=== PATIENT | male | born 1985 | race Caucasian/White ===

== ENCOUNTER 2016-09-21 00:36 | Emergency (ER) | payer SELFPAY ==
--- NOTE | 2016-09-21 00:39 | EDPRACDOC ---
<Comfort Harper - Last Filed: 09/21/16 01:43> - History of Present Illness Onset: SALES CLERK FOOD HPI: PT FOUND IN HIS ROOM UNRESPONSIVE, EMS CALLED, PT RECEIVED NARCAN 2 MG IN AND 1 MG IV WITH GOOD RESULTS, PT DENIES COMPLAINTS NOW EXCEPT "FEEL CONGESTED IN MY CHEST", STATES CHEST "FEELS FUNNY". PT STATES WAS INJECTING HEROIN TONIGHT, DENIES OTHER DRUG USE. Reason for Seeking Treatment: 911 Call Presents With: Reports: None Expresses: Reports: None Suicidal Plan: Reports: None Relevant History: Reports: None Medication Compliance: N/A Able to Care for Self: Yes Able to Control Self: Yes Associated Signs and Symptoms: Reports: Other <Benito Jackson - Last Filed: 09/21/16 02:35> - General Information Chief Complaint: Overdose Stated Complaint: OD Time Seen by Provider: 09/21/16 00:36 - Treatment Prior to ED Arrival Reported Medications/Treatment SALES CLERK FOOD Medications SALES CLERK FOOD (Medication/ NARCAN 3MG Dose/Time) EMS Treatment BLS IV Yes <Comfort Harper - Last Filed: 09/21/16 01:43> ED Past Medical History - History Reviewed Yes Nurses notes reviewed and agree except as marked No Past Medical History: Yes Patient has no past medical history - Social Medical History Smoking Status: Heavy tobacco smoker (5 or more cigarettes/day or daily pipe/ cigar) ETOH: None Substance Abuse: Illicit Drugs (HEROIN) <Benito Jackson - Last Filed: 09/21/16 02:35> EDM Review of Systems - Review of Systems Constitutional: negative: Chills, Fever Eyes: negative: Blurred Vision, Double Vision Ears: negative: Drainage Throat: negative: Pain Nose: Congestion. negative: Discharge Respiratory: Cough. negative: Shortness of Breath, Wheezing Cardiovascular: negative: Chest Pain, Palpitations Gastrointestinal: negative: Diarrhea, Nausea, Pain, Vomiting Genitourinary: negative: Dysuria, Frequency Neurological: negative: Dizziness, Headache, Numbness, Weakness Musculoskeletal: No Symptoms Reported Integumentary: No Symptoms Reported <Benito Jackson - Last Filed: 09/21/16 02:35> - Physical Exam Last recorded Vital Signs: Last Vital Signs Temp 97.8 F 09/21/16 00:49 Pulse 95 09/21/16 01:11 Resp 22 09/21/16 01:11 BP 154/86 09/21/16 01:11 Pulse Ox 95 09/21/16 01:21 Oxygen Pulse Oxygen Saturation 95 O2 Device Nasal Cannula Oxygen Flow Rate 2 Fraction of Inspired Oxygen ( FIO2) <Comfort Harper - Last Filed: 09/21/16 01:43> - Physical Exam Constitutional: Alert (Awake), No apparent distress Oriented to: Time, Person, Place Last recorded Vital Signs: Oxygen Pulse Oxygen Saturation O2 Device Oxygen Flow Rate Fraction of Inspired Oxygen ( FIO2) - HEENT Head: Normal ( normocephalic) Eye Exam: Normal (PERRL, EOMI, Sclera white) Oropharynx: Normal (Pharynx:Moist without exudate,Gums-no swelling) Tympanic Membrane: Normal ENT EAC: Normal TMJ: Normal Nose: No Symptoms Reported (septum midline) Neck: Normal (FROM, trachea at midline) - Respiratory/Cardiovascular Respiratory: Normal - CTA (BBS clear to auscultation without adventitious sounds ) Cardiovascular: Normal (RRR without murmur, gallop or rub) - GI Auscultation: Normal (NABS) Palpation: Normal (Soft,No rebound or guarding, non distended) Tenderness: Non tender Reyna's Sign: Negative - Musculoskeletal Back: Normal (Non-Tender) Extremities: Normal (Normal tone, Pulses 2+ No cyanosis or edema, FROM) - Integumentary Skin: Normal, Warm, Dry Lymphatics: Normal (no adenopathy) - Neurologic Memory Impaired: Normal Motor Function: Normal (Normal tone, Pulses 2+ No cyanosis or edema, FROM) Cranial Nerve: Normal (CN II-X11 intact sensation, strength 5/5) Cerebellar: Normal Mood Description: Normal Perception: Normal <Benito Jackson - Last Filed: 09/21/16 02:35> - Results 09/21/16 00:50 09/21/16 00:50 WBC 13.9 xk/uL (3.8-10.8) H 09/21/16 00:50 RBC 4.50 xM/uL (4.70-6.10) L 09/21/16 00:50 Hgb 13.5 g/dL (14.0-18.0) L 09/21/16 00:50 Hct 39.9 % (42-52) L 09/21/16 00:50 MCV 89 fL (80-94) 09/21/16 00:50 MCH 30.0 pg (27-32) 09/21/16 00:50 MCHC 33.8 g/dl (33-36) 09/21/16 00:50 RDW 13.2 % (11.5-14.5) 09/21/16 00:50 Plt Count 239 xk/uL (130-400) 09/21/16 00:50 MPV 8.1 fL (7.4-10.4) 09/21/16 00:50 Neut % (Auto) 73.7 % (45-76) 09/21/16 00:50 Lymph % (Auto) 20.4 % (17-44) 09/21/16 00:50 [place] % (Auto) 4.2 % (3-10) 09/21/16 00:50 Eos % (Auto) 1.0 % (0-5) 09/21/16 00:50 Baso % (Auto) 0.7 % (0-2) 09/21/16 00:50 Absolute Neuts (auto) 10.15 xk/uL (1.7-8.2) H 09/21/16 00:50 Absolute Lymphs (auto) 2.78 xk/uL (0.65-4.75) 09/21/16 00:50 PT 11.4 SEC (9.2-11.2) H 09/21/16 00:50 INR 1.1 09/21/16 00:50 APTT 22.4 SEC (22-35) 09/21/16 00:50 Puncture Site Right radial 09/21/16 01:09 pH 7.370 pH UNITS (7.35-7.45) 09/21/16 01:09 pCO2 46.0 mmHg (35-45) H 09/21/16 01:09 pO2 57.0 mmHg (80-100) L 09/21/16 01:09 HCO3 26.6 MMOL/L (22-26) H 09/21/16 01:09 Total CO2 28.0 MMOL/L (23-27) H 09/21/16 01:09 Base Excess 0.8 (+/- 2) 09/21/16 01:09 FiO2 % 21 09/21/16 01:09 Specimen Drawn By Rakma 09/21/16 01:09 Sodium 140 mEq/L (137-146) 09/21/16 00:50 Potassium 3.9 mEq/L (3.5-5.1) 09/21/16 00:50 Chloride 102 mEq/L (98-107) 09/21/16 00:50 Carbon Dioxide 30 mMOL/L (22-33) 09/21/16 00:50 Anion Gap 12 mEq/L (8-16) 09/21/16 00:50 BUN 14 MG/DL (9-20) 09/21/16 00:50 Creatinine 0.90 MG/DL (0.66-1.25) 09/21/16 00:50 Estimated GFR (MDRD) > 60 mL/min (>=60) 09/21/16 00:50 Glucose 177 MG/DL (70-99) H 09/21/16 00:50 Calculated Osmolality 274 MOs/Kg (270-290) 09/21/16 00:50 Calcium 8.3 MG/DL (8.4-10.2) L 09/21/16 00:50 Corrected Calcium 8.5 MG/DL (8.4-10.2) 09/21/16 00:50 Total Bilirubin 1.0 MG/DL (0.2-1.3) 09/21/16 00:50 AST 38 IU/L (17-59) 09/21/16 00:50 ALT 37 IU/L (21-72) 09/21/16 00:50 Alkaline Phosphatase 42 IU/L (38-126) 09/21/16 00:50 Troponin I < 0.01 ng/mL (<.04) 09/21/16 00:50 Total Protein 6.6 G/DL (6.3-8.2) 09/21/16 00:50 Albumin 3.8 G/DL (3.5-5.0) 09/21/16 00:50 Lab Results 09/21/16 09/21/16 09/21/16 01:09 00:50 00:50 WBC 13.9 H RBC 4.50 L Hgb 13.5 L Hct 39.9 L MCV 89 MCH 30.0 MCHC 33.8 RDW 13.2 Plt Count 239 MPV 8.1 Neut % (Auto) 73.7 Lymph % (Auto) 20.4 [place] % (Auto) 4.2 Eos % (Auto) 1.0 Baso % (Auto) 0.7 Absolute Neuts (auto) 10.15 H Absolute Lymphs (auto) 2.78 PT 11.4 H INR 1.1 APTT 22.4 Puncture Site Right radial pH 7.370 pCO2 46.0 H pO2 57.0 L HCO3 26.6 H Total CO2 28.0 H Base Excess 0.8 FiO2 % 21 Specimen Drawn By Rakma Sodium Potassium Chloride Carbon Dioxide Anion Gap BUN Creatinine Estimated GFR (MDRD) Glucose Calculated Osmolality Calcium Corrected Calcium Total Bilirubin AST ALT Alkaline Phosphatase Troponin I Total Protein Albumin 09/21/16 00:50 WBC RBC Hgb Hct MCV MCH MCHC RDW Plt Count MPV Neut % (Auto) Lymph % (Auto) [place] % (Auto) Eos % (Auto) Baso % (Auto) Absolute Neuts (auto) Absolute Lymphs (auto) PT INR APTT Puncture Site pH pCO2 pO2 HCO3 Total CO2 Base Excess FiO2 % Specimen Drawn By Sodium 140 Potassium 3.9 Chloride 102 Carbon Dioxide 30 Anion Gap 12 BUN 14 Creatinine 0.90 Estimated GFR (MDRD) > 60 Glucose 177 H Calculated Osmolality 274 Calcium 8.3 L Corrected Calcium 8.5 Total Bilirubin 1.0 AST 38 ALT 37 Alkaline Phosphatase 42 Troponin I < 0.01 Total Protein 6.6 Albumin 3.8 - Diagnostic Imaging Chest Image interpreted by: Radiologist Peribronchial thickening and perihilar opacities suggesting bronchiolitis versus reactive airways disease. <Comfort Harper - Last Filed: 09/21/16 01:43> - Differential Diagnosis Substance abuse - Re-evaluation Re-evaluation 1 Re-evaluation Time: 02:07 (PT STATES "I FEEL FINE", VOMITED LARGE AMOUNT, STATES FEELS BETTER NOW.) Re-evaluation 2 Re-evaluation Time: 02:33 (O2 SATS MAINTAINING MID 90s ON ROOM AIR, PT STATES HE WANTS TO GO HOME, RECOMMENDED ADMISSION, PT REFUSES.) - Results 09/21/16 00:50 09/21/16 00:50 - EKG EKG #1 EKG Time: 00:46 -: Yes EKG interpreted by me Rate: bpm: 105 [place]: Normal Rhythm: ST Block: None Hypertrophy: None ST: Normal Comments: NO OLD EKG FOR COMPARISON <Benito Jakcson - Last Filed: 09/21/16 02:35> <Comfort Harper - Last Filed: 09/21/16 01:43> Decision Time to Discharge: 02:34 - Departure Disposition: Home Education/Counseling Given To: Patient Education/Counseling Given Regarding: Diagnosis, Treatment, Prognosis, Follow Up <Benito Jackson - Last Filed: 09/21/16 02:35> - Departure Condition: Stable Final Diagnosis: Hypoxia Opiate overdose Qualifiers: Encounter type: initial encounter Injury intent: accidental or unintentional Qualified Code(s): T40.601A - Poisoning by unspecified narcotics, accidental ( unintentional), initial encounter Instructions: Adult Overdose Referrals: Jasbir Moran MD [Ambulatory] - One Week Additional Instructions: FOLLOW UP WITH [facility] FOR SUBSTANCE ABUSE COUNSELING, RETURN TO THE ED FOR ANY WORSENING SYMPTOMS OR CONCERNS.
[2016-09-21] MEDS ORDERED: NS 1,000 ML IV ONE (00:40)
[2016-09-21 00:56] VITALS: TEMP 97.8; BMI 25.7
[2016-09-21 01:06] LABS: AUTOMATED BASOPHIL 0.7 % (0-2); AUTOMATED LYMPH 20.4 % (17-44); AUTOMATED MONOCYTE 4.2 % (3-10); AUTOMATED NEUTROPHIL 73.7 % (45-76); MPV 8.1 fL (7.4-10.4)
[2016-09-21 01:11] LABS: BLOOD UREA NITROGEN 14 MG/DL (9-20); CALC CORRECTED 8.5 MG/DL (8.4-10.2); CALCIUM 8.3 MG/DL (8.4-10.2); CALCULATED OSMOLALITY 274 MOs/Kg (270-290); CHLORIDE 102 mEq/L (98-107); GLUCOSE 177 MG/DL (70-99); SODIUM LEVEL 140 mEq/L (137-146); TOTAL PROTEIN 6.6 G/DL (6.3-8.2)
[2016-09-21 01:14] LABS: ALLEN'S TEST PASS; BEb 0.8 (+/- 2)
[2016-09-21 01:15] LABS: ABG Draw Site Right Radial
[2016-09-21 01:15] LABS: PARTIAL THROMB. TIME 22.4 SEC (22-35); PT-INR 1.1
--- NOTE | 2016-09-21 01:42 | DIRPT ---
CLINICAL DATA: Patient was found unresponsive. Responded to Narcan. Now complains of cough and congestion. Has been injecting heroin. EXAM: PORTABLE CHEST 1 VIEW COMPARISON: None. FINDINGS: Normal heart size and pulmonary vascularity. Peribronchial thickening and perihilar streaky opacities suggesting bronchiolitis or reactive airways disease. No focal consolidation in the lungs. No blunting of costophrenic angles. No pneumothorax. Mediastinal contours appear intact. IMPRESSION: Peribronchial thickening and perihilar opacities suggesting bronchiolitis versus reactive airways disease. Electronically Signed By: Bj Disla M.D. On: 09/21/2016 01:39
[2016-09-21 02:11] LABS: ALL NEG? YES; MDMA* NEG (NEGATIVE); METHAMPHETAMINES NEG (NEGATIVE); OXYCODONE NEG (NEGATIVE)
[2016-09-21 02:12] LABS: LEUKOCYTES/URINE NEG (NEGATIVE); NITRITE/URINE NEG (NEGATIVE); RBC/URINE 0-2 (0-2); URINE OCCULT BLOOD NEG (NEG/TRACE)
[2016-09-21 02:49] VITALS: BP 135/71; PULSE 92
== END 2016-09-21 02:45 | disposition home or self-care (01) ==
LOC: ED 00:36
DX: T40.601A Poisoning by unspecified narcotics, accidental (unintentional), initial encounter (principal)
CPT/HCPCS: 36415; 36600; 71010; 80053; 80307; 81001; 82803; 84484; 85025; 85610; 85730; 93005; 96360; 96361; 99284